=== PATIENT | female | born 1965 | race Caucasian/White ===

== ENCOUNTER 2017-02-17 02:30 | Emergency (ER) | payer SELFPAY ==
[~2017-02-17] VITALS: Ht 177.8 cm; Wt 66.0 kg
[~2017-02-17 02:30] MED LIST: AMOX500C PO; BENZ100 PO; CETI10 PO; FLUT1SPR9; HYDR-3533 PO; METO50TA PO; NAPR-576 PO
[2017-02-17 03:21] VITALS: BP 106/62; PULSE 83; RESP 16; TEMP 97.7; O2SAT 96
--- NOTE | 2017-02-17 03:49 | PD ---
HPI Chief Complaint: Injury Time Seen by Provider: 03:31 Travel History International Travel<30 days: No Contact w/Intl Traveler<30days: No Traveled to known affect area: No History of Present Illness HPI WHLE PATIENT WAS DRINKING ALCOHOL SHE MISSTEPPED AT [facility] AND GOT SWOLLEN TO RIGHT ANKLE. PAIN TO RT ANKLE....ARRIVED BY EMS. PFSH Past Medical History Atrial Fibrillation: Yes Cardiovascular Problems: Yes (A. FIB.) Diminished Hearing: No Herniated Disk: Yes Hypertension: Yes ?: Not Menopausal: Yes Past Surgical History Gynecologic Surgery: Yes (laperscopy x 2) Social History Alcohol Use: Yes (occas. wine) Tobacco Use: Yes (cigs occas) Substance Use: No Allergies-Medications (Allergen,Severity, Reaction): Coded Allergies: Ultram (Verified Allergy, Severe, 09/12/16) Reported Meds & Prescriptions Reported Meds & Active Scripts Active Amoxicillin 500 Mg Cap 500 Mg PO TID Metoprolol Tartrate 50 mg (Metoprolol Tartrate) 50 Mg Tab 50 Mg PO BID Zyrtec 10 Mg Tab (Cetirizine HCl) 10 Mg Tab 10 Mg PO DAILY Tessalon Perles (Benzonatate) 100 Mg Cap 200 Mg PO TID PRN Lortab 5 mg/325 mg (Hydrocodone/Acetaminophen 5 mg/325 mg) 1 Tab 1 Tab PO Q6H PRN Flonase Allergy Relief Ch (Fluticasone Propionate (Nasal)) 50 Mcg/Act Spr 1 [place] NA DAILY Naproxen 500 Mg Tab 500 Mg PO Q12HR PRN Physical Exam Narrative GENERAL: SKIN: Warm and dry. HEAD: Atraumatic. Normocephalic. EYES: Pupils equal and round. No scleral icterus. No injection or drainage. ENT: No nasal bleeding or discharge. Mucous membranes pink and moist. NECK: Trachea midline. No JVD. CARDIOVASCULAR: Regular rate and rhythm. RESPIRATORY: No accessory muscle use. Clear to auscultation. Breath sounds equal bilaterally. GASTROINTESTINAL: Abdomen soft, non-tender, nondistended. Hepatic and splenic margins not palpable. MUSCULOSKELETAL: Extremities without clubbing, cyanosis, or RT ANKLE edema WITHOUT CREPITUS NEUROLOGICAL: Awake and alert. No obvious cranial nerve deficits. Motor grossly within normal limits. Five out of 5 muscle strength in the arms and legs. Normal speech. PSYCHIATRIC: Appropriate mood and affect; insight and judgment normal. Data Data Last Documented VS Vital Signs Date Time Temp Pulse Resp B/P Pulse Ox O2 Delivery O2 Flow Rate FiO2 02/17/17 03:21 97.7 83 16 106/62 96 Orders Complete Blood Count With Diff (02/17/17 03:31) Basic Metabolic Panel (Bmp) (02/17/17 03:31) Prothrombin Time / Inr (Pt) (02/17/17 03:31) Act Partial Throm Time (Ptt) (02/17/17 03:31) Ankle, Limited (Ap&Lat) (02/17/17 ) MDM Medical Decision Making Medical Screen Exam Complete: Yes Emergency Medical Condition: Yes Medical Record Reviewed: Yes Differential Diagnosis ANKLE FX V DISLOCATION V SPRAIN Narrative Course PT XRAY REVIEWED BY RADIOLOGIST. NO FX/DISLOCATION NOTED. PATIENT STARTED SCREAMING AND YELLING AT NURSE, CURSING AT LOUD, PRIOR TO D/C PAPERWORK, PT SIGNED AMA PAPERWORK, [facility] BIOLOGIST ATTEMPTED TO DEESCALATE. Diagnosis Primary Impression: RIGHT ANKLE SPRAIN Patient Instructions: Ankle Sprain (ED), General Instructions Disposition: 07 AGAINST MEDICAL ADVICE Condition: Stable Nghia Ervin MD Feb 17, 2017 03:49
--- NOTE | 2017-02-18 09:01 | RADRPT ---
EXAM DATE/TIME: 02/17/2017 02:51 [facility] COMPARISON: No previous studies available for comparison. INDICATIONS : Pt fell off curb and twisted right ankle- laceration to lateral ankle. MEDICAL HISTORY : None. SURGICAL HISTORY : None. ENCOUNTER: Initial ACUITY: 1 day PAIN SCORE: 6/10 LOCATION: Right Ankle FINDINGS: Three view exam was performed of the right ankle. The bony structures are in normal alignment. No e vidence of fracture, dislocation, or soft tissue swelling. The ankle mortise is intact. No radiopaq ue foreign bodies are seen. Bony mineralization is normal. CONCLUSION: Soft tissue swelling without fracture. Gabe East MD on February 17, 2017 at 3:31 Board Certified Radiologist. This report was verified electronically.
== END 2017-02-17 04:25 | disposition left against medical advice (07) ==
LOC: NEPC 02:30
DX: S93.401A Sprain of unspecified ligament of right ankle, initial encounter (principal); I48.91 Unspecified atrial fibrillation; I10 Essential (primary) hypertension; F17.210 Nicotine dependence, cigarettes, uncomplicated; W18.30XA Fall on same level, unspecified, initial encounter; Z79.899 Other long term (current) drug therapy
CPT/HCPCS: 73610; 99283